=== PATIENT | male | born 1980 | race Caucasian/White ===

== ENCOUNTER 2020-10-06 09:36 | Emergency (ER) | payer MEDICAID ==
[~2020-10-06] VITALS: Ht 177.8 cm; Wt 90.9 kg
[~2020-10-06 09:36] MED LIST: NO HOME MEDS
[2020-10-06 09:50] VITALS: BP 153/97
[2020-10-06] MEDS ORDERED: METR500T PO (11:25)
[2020-10-06] MEDS ORDERED: AMOX-422 PO (11:25)
== END 2020-10-06 11:40 | disposition home or self-care (01) ==
LOC: ER 09:37
DX: K61.0 Anal abscess (principal); F17.200 Nicotine dependence, unspecified, uncomplicated; Z79.899 Other long term (current) drug therapy
CPT/HCPCS: 99283

== ENCOUNTER 2020-11-03 13:21 | Emergency (ER) | payer MEDICAID ==
[~2020-11-03] VITALS: Ht 177.8 cm; Wt 90.0 kg
[2020-11-03 13:43] VITALS: BP 143/86
== END 2020-11-03 14:35 | disposition home or self-care (01) ==
LOC: ER 13:22
DX: Z02.89 Encounter for other administrative examinations (principal)
CPT/HCPCS: 99281

== ENCOUNTER 2023-07-11 10:37 | Emergency (ER) | payer MEDICAID ==
[~2023-07-11] VITALS: Ht 175.3 cm; Wt 107.6 kg
[2023-07-11 10:47] VITALS: BP 179/102; PULSE 89; O2SAT 97
[2023-07-11 11:00] VITALS: RESP 16
[2023-07-11 11:33] VITALS: TEMP 97.7
== END 2023-07-11 11:36 | disposition home or self-care (01) ==
LOC: ER 10:38
DX: S61.315A Laceration without foreign body of left ring finger with damage to nail, initial encounter (principal); W26.8XXA Contact with other sharp object(s), not elsewhere classified, initial encounter; Y93.89 Activity, other specified; Y92.89 Other specified places as the place of occurrence of the external cause; Y99.8 Other external cause status
CPT/HCPCS: 75635; 99281; 99284

== ENCOUNTER 2024-05-21 21:17 | Emergency (ER) | payer MEDICAID, OTHER ==
[~2024-05-21] VITALS: Ht 177.8 cm; Wt 98.6 kg
[2024-05-21 21:20] VITALS: BP 136/85; PULSE 97; RESP 20; O2SAT 97
[2024-05-21 22:29] VITALS: TEMP 98.4
== END 2024-05-21 22:30 | disposition home or self-care (01) ==
LOC: ER 21:18
DX: S61.215A Laceration without foreign body of left ring finger without damage to nail, initial encounter (principal); W26.8XXA Contact with other sharp object(s), not elsewhere classified, initial encounter; Y93.89 Activity, other specified; Y92.89 Other specified places as the place of occurrence of the external cause; Y99.8 Other external cause status
CPT/HCPCS: 12001; 99282

== ENCOUNTER 2024-07-10 08:30 | Emergency (ER) | payer OTHER ==
[~2024-07-10] VITALS: Ht 175.3 cm; Wt 89.2 kg
[2024-07-10 09:36] LABS: BASOPHILS # (AUTO) 0.1 X10'3 (0-0.2); BASOPHILS % (AUTO) 0.6 % (0-1); EOSINOPHILS # (AUTO) 0.2 X10'3 (0-0.9); EOSINOPHILS % (AUTO) 1.2 % (0-6); HEMATOCRIT 50.1 % (42.0-52.0); HEMOGLOBIN 17.6 g/dl (14.0-17.9); LYMPHOCYTES # (AUTO) 1.2 X10'3 (1.1-4.8); MEAN CORPUSCULAR HGB CONC 35.1 g/dL (33.0-36.5); MEAN CORPUSCULAR VOLUME 96.8 FL (78-98); MEAN PLATELET VOLUME 7.3 FL (7.4-10.4); MONOCYTES # (AUTO) 1.5 X10'3 (0-0.9); MONOCYTES % (AUTO) 10.9 % (2-12); NEUTROPHILS # (AUTO) 10.5 X10'3 (1.8-7.7); NEUTROPHILS % (AUTO) 78.3 % (42-75); PLATELET COUNT 231 X10'3 (140-440); RED BLOOD COUNT 5.18 X10'6 (4.70-6.10); RED CELL DISTRIBUTION WIDTH 12.3 % (11.5-14.5); WHITE BLOOD COUNT 13.4 X10'3 (4.5-11.0)
[2024-07-10] MEDS: ipratropium/albuterol 3ml nebule NEB ONE (09:45)
[2024-07-10 09:46] VITALS: PULSE 85; RESP 18; O2SAT 97
[2024-07-10 09:51] LABS: ALBUMIN 3.8 G/DL (3.4-5.0); ANION GAP 14 (8-16); BLOOD UREA NITROGEN 4 MG/DL (7-18); BUN/CREATININE RATIO 4.3 (10.0-20.0); CALCIUM 9.1 MG/DL (8.5-10.1); CHLORIDE 103 MMOL/L (99-107); CREATININE 0.94 MG/DL (0.60-1.10); GLUCOSE 110 MG/DL (70-104); POTASSIUM 3.8 MMOL/L (3.5-5.1); PRO BRAIN NATRIURETIC PEPTIDE 75 PG/ML (0-125); SODIUM 139 MMOL/L (135-145); TOTAL CARBON DIOXIDE 22.5 MMOL/L (24-32); eCRCL 102 ML/MIN; eGFR 88 ML/MIN
[2024-07-10 09:52] VITALS: PULSE 88; RESP 20; O2SAT 99
[2024-07-10] MEDS ORDERED: ALBU18HF2 INH (11:46)
[2024-07-10] MEDS ORDERED: AZIT-164 PO (11:46)
[2024-07-10] MEDS: dexamethasone sod phosphate 10mg/ml inj PO STA (12:08)
[2024-07-10 12:23] VITALS: BP 149/101; PULSE 92; RESP 20; TEMP 99.4; O2SAT 93
== END 2024-07-10 12:25 | disposition home or self-care (01) ==
LOC: ER 08:31
DX: J20.9 Acute bronchitis, unspecified (principal); F17.200 Nicotine dependence, unspecified, uncomplicated; Z20.822 Contact with and (suspected) exposure to COVID-19
CPT/HCPCS: 36415; 71046; 80048; 83605; 83880; 84145; 85025; 87040; 87502; 87503; 87811; 94640; 99285; J1100; 94760; A4615